=== PATIENT | male | born 1980 | race African-American/Black ===

== ENCOUNTER 2016-05-31 06:30 | Emergency (ER) | payer OTHER ==
[2016-05-31 06:48] VITALS: BP 117/70; PULSE 84; TEMP 98; BMI 33.6
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
== END 2016-05-31 09:33 | disposition home or self-care (01) ==
LOC: JER 06:30
DX: M54.16 Radiculopathy, lumbar region (principal); V43.52XA Car driver injured in collision with other type car in traffic accident, initial encounter; Y93.89 Activity, other specified; Y92.410 Unspecified street and highway as the place of occurrence of the external cause; M87.9 Osteonecrosis, unspecified; K21.9 Gastro-esophageal reflux disease without esophagitis; E78.00 Pure hypercholesterolemia, unspecified
CPT/HCPCS: 72100-TC; 99283-25

== ENCOUNTER 2016-06-11 18:22 | Emergency (ER) | payer OTHER ==
[2016-06-11 18:31] VITALS: BMI 33.9
[2016-06-11] MEDS ORDERED: ONDANSETRON 4 MG/2 ML VIAL IVPUSH ONE (18:52)
[2016-06-11] MEDS ORDERED: SODIUM CHLORIDE 1,000 ML IV STA (18:52)
--- NOTE | 2016-06-11 18:52 | PDOC ---
History of Present Illness - History of Present Illness Initial Comments: 06/11/16 19:06 The patient is a 35 year old male with a past medical hx of GERD, hypercholesterolemia who presents to the ED complaining of a fever and diarrhea since yesterday. The patient notes he has been having associated nausea. The patient notes his mother and sister have been sick with similar symptoms. Patient is present in the ED with his family members who are sick. He reports headache, body aches, chills He denies chest pain, SOB He denies dysuria, frequency Allergies: Naproxen Social: No toxic habits reported Surgical: None reported PCP: N/A <Suyapa Snell - Last Filed: 06/11/16 19:06> <Candice Oconnell - Last Filed: 06/11/16 22:44> - General Chief Complaint: Lightheaded Stated Complaint: LIGHTHEADED/DIARRHEA/HEADACHE Time Seen by Provider: 06/11/16 18:43 Past History <Suyapa Snell - Last Filed: 06/11/16 19:06> - Past Medical History GI Disorders: Yes (GERD) Hypercholesterolemia: Yes - Immunization History Immunization Up to Date: Yes - Psycho/Social/Smoking Cessation Hx Anxiety: No Suicidal Ideation: No Smoking History: Never smoked Hx Alcohol Use: No Drug/Substance Use Hx: No Substance Use Type: None <Candice Oconnell - Last Filed: 06/11/16 22:44> - Past Medical History Allergies/Adverse Reactions: Allergies Allergy/AdvReac Type Severity Reaction Status Date / Time naproxen [From Naprosyn] Allergy Verified 06/11/16 18:31 Home Medications: Ambulatory Orders Cyclobenzaprine HCl [Flexeril -] 10 mg PO TID PRN #14 tablet 05/22/16 Oxycodone HCl 1 - 2 tab PO Q6H PRN #24 tablet MDD 8 05/31/16 Review of Systems - Review of Systems Able to Perform ROS?: Yes Comments:: 06/11/16 19:06 CONSTITUTIONAL: +Fever, chills, body aches. Absent: diaphoresis, generalized weakness, malaise, loss of appetite HEENT: Absent: rhinorrhea, nasal congestion, throat pain, throat swelling, difficulty swallowing, mouth swelling, ear pain, eye pain, visual Changes CARDIOVASCULAR: Absent: chest pain, syncope, palpitations, irregular heart rate, lightheadedness , peripheral edema RESPIRATORY: Absent: cough, shortness of breath, dyspnea with exertion, orthopnea, wheezing, stridor, hemoptysis GASTROINTESTINAL: +Nausea, diarrhea. Absent: abdominal pain, abdominal distension, vomiting, constipation, melena, hematochezia GENITOURINARY: Absent: dysuria, frequency, urgency, hesitancy, hematuria, flank pain, genital pain MUSCULOSKELETAL: Absent: myalgia, arthralgia, joint swelling SKIN: Absent: rash, itching, pallor NEUROLOGIC: Absent: headache, focal weakness or paresthesias, dizziness, unsteady gait, seizure, mental status changes, bladder or bowel incontinence PSYCHIATRIC: Absent: anxiety, depression, suicidal or homicidal ideation, hallucinations. <Suyapa Snell - Last Filed: 06/11/16 19:06> *Physical Exam - Vital Signs Last Vital Signs Temp Pulse Resp BP Pulse Ox 103.0 F H 125 H 20 115/56 96 06/11/16 18:28 06/11/16 18:28 06/11/16 18:28 06/11/16 18:28 06/11/16 18:28 - Physical Exam Comments: 06/11/16 19:07 GENERAL: Well developed, well nourished. Awake and alert. No acute distress. HEENT: Normocephalic, atraumatic. PERRLA, EOMI. No conjunctival pallor. Sclera are non- icteric. Moist mucous membranes. Oropharynx is clear. NECK: Supple. Full ROM. No JVD. Carotid pulses 2+ and symmetric, without bruits. No thyromegaly. No lymphadenopathy. CARDIOVASCULAR: Regular rate and rhythm. No murmurs, rubs, or gallops. Distal pulses are 2+ and symmetric. PULMONARY: No evidence of respiratory distress. Lungs clear to auscultation bilaterally. No wheezing, rales or rhonchi. ABDOMINAL: Soft. Non-tender. Non-distended. No rebound or guarding. No organomegaly. Normoactive bowel sounds. MUSCULOSKELETAL Normal range of motion at all joints. No bony deformities or tenderness. No CVA tenderness. EXTREMITIES: No cyanosis. No clubbing. No edema. No calf tenderness. SKIN: Warm and dry. Normal capillary refill. No rashes. No jaundice. NEUROLOGICAL: Alert, awake, appropriate. Cranial nerves 2-12 intact. No deficits to light touch and temperature in face, upper extremities and lower extremities. No motor deficits in the in face, upper extremities and lower extremities. Normoreflexic in the upper and lower extremities. Normal speech. PSYCHIATRIC: Cooperative. Good eye contact. Appropriate mood and affect. <Suyapa Snell - Last Filed: 06/11/16 19:06> - Vital Signs Last Vital Signs Temp Pulse Resp BP Pulse Ox 103.0 F H 125 H 20 115/56 96 06/11/16 18:28 06/11/16 18:28 06/11/16 18:28 06/11/16 18:28 06/11/16 18:28 <Candice Oconnell - Last Filed: 06/11/16 22:44> ED Treatment Course - LABORATORY CBC & Chemistry Diagram: 06/11/16 21:08 06/11/16 21:08 <Candice Oconnell - Last Filed: 06/11/16 22:44> Medical Decision Making - Medical Decision Making 06/11/16 22:23 35-year-old male presents with fever, chills, nausea, diarrhea, headache and body aches for a day. His mother and sister are also ill with the same symptoms. No focal neural deficits. no nuccal rigidity Benign abdominal exam. CBC is within normal limits Chemistries unremarkable influeza a and b negative pt received IVF and tylenol IMP; viral illness/gastroenteritis <Candice Oconnell - Last Filed: 06/11/16 22:44> *DC/Admit/Observation/Transfer - Attestations Scribe Attestion: 06/11/16 19:07 Documentation prepared by Suyapa Snell, acting as medical device sales for Candice Oconnell MD/DO. <Suyapa Snell - Last Filed: 06/11/16 19:06> <Candice Oconnell - Last Filed: 06/11/16 22:44> Diagnosis at time of Disposition: Gastroenteritis Fever Qualifiers: Fever type: unspecified Qualified Code(s): R50.9 - Fever, unspecified - Discharge Dispostion Disposition: HOME Condition at time of disposition: Stable - Patient Instructions Printed Discharge Instructions: DI for Viral Gastroenteritis -- Adult, DI for Fever (Symptom) -- Adult Additional Instructions: please advance your diet as tolerated,start with liquids first and then try toast,rice,bananas or applesauce return for worsening symptoms
[2016-06-11] MEDS ORDERED: ACETAMINOPHEN 500 MG TABLET (FP) PO ONE (19:28)
[2016-06-11] MEDS ORDERED: ONDANSETRON 4 MG/2 ML VIAL ONE (20:06)
[2016-06-11] MEDS ORDERED: ACETAMINOPHEN 325 MG TABLET (FP) ONE (20:06)
[2016-06-11 21:17] LABS: BASOPHIL 0.3 % (0-2.0); EOSINOPHIL 0.2 % (0-4.5); MCH 27.6 pg (25.7-33.7); MCHC 32.6 g/dl (32.0-35.9); MEAN CELL VOLUME 84.6 fl (80-96); MEAN PLT VOLUME 7.2 fl (7.5-11.1); NEUTROPHILS 85.4 % (42.8-82.8); PLATELET COUNT 263 K/MM3 (134-434); RDW 13.7 % (11.9-15.9); WHITE BLOOD COUNT 9.1 K/mm3 (4.0-10.0)
[2016-06-11 21:43] LABS: ALBUMIN 3.7 g/dl (3.4-5.0); ALK PHOS 98 U/L (45-117); ANION GAP 8 (8-16); BILIRUBIN,TOTAL 0.5 mg/dL (0.2-1.0); CALCIUM 8.2 mg/dL (8.5-10.1); CO2 26 mmol/L (21-32); CREATININE 1.2 mg/dL (0.7-1.3); GLUCOSE,RANDOM 97 mg/dL (74-106); SGOT/AST 25 U/L (15-37); SGPT/ALT 61 U/L (12-78); TOT PROT 6.6 g/dl (6.4-8.2)
[2016-06-11 23:10] VITALS: BP 97/66; PULSE 105; TEMP 101.5
== END 2016-06-11 23:21 | disposition home or self-care (01) ==
LOC: JER 18:22
PROC: 3E033GC Introduction of Other Therapeutic Substance into Peripheral Vein, Percutaneous Approach (ICD-10-PCS; principal; 2016-06-11)
DX: K52.9 Noninfective gastroenteritis and colitis, unspecified (principal)
CPT/HCPCS: 36415; 80053; 85025; 87804; 99282-25